=== PATIENT | female | born 1955 | race African-American/Black ===

== ENCOUNTER → 2017-03-12 | Emergency (ER) | payer OTHER ==
[~2017-03-12] MED LIST: INSULIN REGULAR HUMAN 100 UNITS/ML *VIAL ONE; INSULIN REGULAR HUMAN 100 UNITS/ML *VIAL SQ ONE; SODIUM CHLORIDE 1,000 ML IV STA
[2017-03-12 17:52] VITALS: BMI 48.2
--- NOTE | 2017-03-12 20:06 | PDOC ---
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 She also endorsed a slight frontal headache. The patient sat down and checked her blood pressure which was around 90/50. The patient denies any nausea, vomiting, chest pain, shortness of breath, palpitations, or loss of consciousness. She states that her symptoms have resolved at this time. The patient also notes she has not taken her meds today for DM or HTN, although she is normally compliant. Patient also missed a meal today. The patient reports having dizziness when she lays down at night for the past few days and dizziness when she bends over for the past month. Patient has an MRI scheduled next month by neurologist for the same complaint. PMD: Liat Kaufman MD Allergies: Meloxicam Surgical Hx: , bilateral knee replacement, rotator cuff repair <Jaquelin Pagan - Last Filed: 03/12/17 20:35> - General Chief Complaint: Lightheaded Stated Complaint: DIZZINESS/EMPLOYEE Time Seen by Provider: 03/12/17 19:28 Past History - Past Medical History Diabetes: Yes HTN: Yes Hypercholesterolemia: No - Surgical History Abdominal Surgery: Yes Cholecystectomy: No Neurologic Surgery: No (HEAD ANEURYSM, SHUNT) - Immunization History Immunization Up to Date: Yes - Psycho/Social/Smoking Cessation Hx Anxiety: No Suicidal Ideation: No Smoking History: Never smoked Hx Alcohol Use: No Drug/Substance Use Hx: No Substance Use Type: None <Saray Mo - Last Filed: 03/12/17 20:21> <Jaquelin Pagan - Last Filed: 03/12/17 20:35> - Past Medical History Allergies/Adverse Reactions: Allergies Allergy/AdvReac Type Severity Reaction Status Date / Time meloxicam [From [facility]] Allergy Rash Verified 03/12/17 17:51 Home Medications: Ambulatory Orders Metformin HCl 1,000 mg PO BID 06/02/15 Glipizide [Glucotrol Xl] 2.5 mg PO DAILY #30 tab.er.24 06/21/16 Aspirin Coated [Ecotrin -] 162 mg PO DAILY PRN 03/12/17 Enalapril Maleate [Vasotec -] 10 mg PO DAILY 03/12/17 Review of Systems - Review of Systems Comments:: 03/12/17 20:33 GENERAL/CONSTITUTIONAL: Diaphoresis. No fever or chills. No weakness. HEAD, EYES, EARS, NOSE AND THROAT: No change in vision. No ear pain or discharge. No sore throat. CARDIOVASCULAR: Low blood pressure. No chest pain or shortness of breath. RESPIRATORY: No cough, wheezing, or hemoptysis. GASTROINTESTINAL: No nausea, vomiting, diarrhea or constipation. GENITOURINARY: No dysuria, frequency, or change in urination. MUSCULOSKELETAL: No joint or muscle swelling or pain. No neck or back pain. ENDOCRINE: No increased thirst. No abnormal weight change. SKIN: No rash NEUROLOGIC: Dizziness, headache. No loss of consciousness or change in strength/ sensation. <Jaquelin Pagan - Last Filed: 03/12/17 20:35> *Physical Exam - Vital Signs Last Vital Signs Temp Pulse Resp BP Pulse Ox 98.3 F 85 20 142/100 96 03/12/17 17:47 03/12/17 17:47 03/12/17 17:47 03/12/17 17:47 03/12/17 17:47 <Saray Mo - Last Filed: 03/12/17 20:21> - Vital Signs Last Vital Signs Temp Pulse Resp BP Pulse Ox 98.3 F 82 18 143/75 96 03/12/17 17:47 03/12/17 20:11 03/12/17 20:11 03/12/17 20:11 03/12/17 20:11 - Physical Exam Comments: 03/12/17 20:35 GENERAL: Awake, alert, and fully oriented, in no acute distress HEAD: No signs of trauma EYES: PERRLA, EOMI, sclera anicteric, conjunctiva clear ENT: Auricles normal inspection, hearing grossly normal, nares patent, oropharynx clear without exudates. Moist mucosa NECK: Normal ROM, supple, no lymphadenopathy, JVD, or masses LUNGS: Breath sounds equal, clear to auscultation bilaterally. No wheezes, and no crackles HEART: Regular rate and rhythm, normal S1 and S2, no murmurs, rubs or gallops ABDOMEN: Soft, nontender, normoactive bowel sounds. No guarding, no rebound. No masses EXTREMITIES: Normal range of motion, no edema. No clubbing or cyanosis. No cords, erythema, or tenderness NEUROLOGICAL: Cranial nerves II through XII grossly intact. Normal speech, normal gait SKIN: Warm, Dry, normal turgor, no rashes or lesions noted. HEMATOLOGIC/LYMPHATIC: No anemia, easy bleeding, or history of blood clots. ALLERGIC/IMMUNOLOGIC: No hives or skin allergy. <Jaquelin Pagan - Last Filed: 03/12/17 20:35> Medical Decision Making - Medical Decision Making 03/12/17 20:21 61-year-old female with history of hypertension, CHF, diabetes, hyperlipidemia who presents to the emergency department with an episode of lightheadedness accompanied by hypotension and diaphoresis while at work today. Differential diagnosis includes but is not limited to: Hypoglycemia, electrolyte abnormality , dehydration, atypical presentation of ACS, toxic/metabolic derangement. Plan: 1. Labs 2. EKGnormal sinus rhythm at 80 bpm with normal axis, intervals and no acute ST segment changes 3. Chest x-ray 4. Observe and reevaluate <Saray Mo - Last Filed: 03/12/17 20:21> *DC/Admit/Observation/Transfer - Attestations Physician Attestion: 03/12/17 20:21 I, Dr. Saray Mo, attest that the scribes documentation that appears above has been prepared under my direction and personally reviewed by me in its entirety. I confirmed that the note above accurately reflects all work, treatment, procedures, and medical decision-making performed by me. <Saray Mo - Last Filed: 03/12/17 20:21> - Attestations Scribe Attestion: 03/12/17 20:35 Documentation prepared by Jaquelin Pagan, acting as medical office supervisor for Saray Mo MD. <Jaquelin Pagan - Last Filed: 03/12/17 20:35> Diagnosis at time of Disposition: Light headedness - Referrals Referrals: Liat Kaufman MD [Primary Care Provider] -
[2017-03-12 20:55] LABS: BASOPHIL 0.8 % (0-2.0); EOSINOPHIL 0.1 % (0-4.5); MCH 26.9 pg (25.7-33.7); MCHC 31.2 g/dl (32.0-36.0); MEAN CELL VOLUME 85.9 fl (80-96); MEAN PLT VOLUME 9.5 fl (7.5-11.1); PLATELET COUNT 279 K/MM3 (134-434); RDW 13.2 % (11.6-15.6); WHITE BLOOD COUNT 4.5 K/mm3 (4.0-10.0)
[2017-03-12 22:35] LABS: ALBUMIN 3.4 g/dl (3.4-5.0); ANION GAP 10 (8-16); CALCIUM 9.5 mg/dL (8.5-10.1); CO2 24 mmol/L (21-32); CREATININE 1.9 mg/dL (0.55-1.02); SGOT/AST 29 U/L (15-37); SGPT/ALT 27 U/L (12-78)
[2017-03-12 22:39] LABS: ALK PHOS 113 U/L (45-117); BILIRUBIN,TOTAL 0.4 mg/dL (0.2-1.0); TOT PROT 7.6 g/dl (6.4-8.2); TROPONIN I < 0.02 ng/ml (0.00-0.05)
[2017-03-12 22:44] LABS: GLUCOSE,RANDOM 440 mg/dL (74-106)
[2017-03-13 02:23] LABS: ANION GAP 15 (8-16); CALCIUM 8.7 mg/dL (8.5-10.1); CO2 21 mmol/L (21-32); CREATININE 1.7 mg/dL (0.55-1.02)
[2017-03-13 02:24] LABS: TROPONIN I < 0.02 ng/ml (0.00-0.05)
[2017-03-13 02:33] LABS: GLUCOSE,RANDOM 347 mg/dL (74-106)
--- NOTE | 2017-03-13 05:13 | PDOC ---
*Physical Exam - Vital Signs Last Vital Signs Temp Pulse Resp BP Pulse Ox 98.3 F 82 18 143/75 96 03/12/17 17:47 03/12/17 20:11 03/12/17 20:11 03/12/17 20:11 03/12/17 20:11 ED Treatment Course - LABORATORY CBC & Chemistry Diagram: 03/12/17 20:50 03/13/17 01:25 - ADDITIONAL ORDERS Additional order review: Laboratory Results 03/13/17 03/12/17 03/12/17 01:25 22:00 20:50 Sodium 138 134 L Cancelled Potassium 4.2 4.4 Cancelled Chloride 102 100 Cancelled Carbon Dioxide 21 24 Cancelled Anion Gap 15 10 Cancelled BUN 23 H 24 H Cancelled Creatinine 1.7 H 1.9 H D Cancelled Creat Clearance w eGFR 26.79 Cancelled Random Glucose 347 H* D 440 H* D Cancelled Calcium 8.7 9.5 Cancelled Phosphorus Cancelled Magnesium Cancelled Total Bilirubin 0.4 Cancelled AST 29 D Cancelled ALT 27 D Cancelled Alkaline Phosphatase 113 Cancelled Creatine Kinase 139 159 D Cancelled CK-MB (CK-2) < 1.000 Troponin I < 0.02 < 0.02 Cancelled Total Protein 7.6 Cancelled Albumin 3.4 Cancelled 03/12/17 20:50 RBC 4.75 MCV 85.9 MCHC 31.2 L RDW 13.2 MPV 9.5 Neutrophils % 39.0 L Lymphocytes % 47.9 H Monocytes % 12.2 H Eosinophils % 0.1 D Basophils % 0.8 - Medications Given in the ED: ED Medications Discontinued Medications Generic Name Dose Route Start Last Admin Trade Name Aldair PRN Reason Stop Dose Admin Sodium Chloride 1,000 mls @ 1,000 mls/hr 03/12/17 22:48 03/12/17 23:35 Normal Saline - IV 03/12/17 23:47 1,000 mls/hr ASDIR STA Administration Sodium Chloride 1,000 mls @ 1,000 mls/hr 03/13/17 02:34 03/13/17 02:36 Normal Saline - IV 03/13/17 03:33 1,000 mls/hr ASDIR STA Administration Medical Decision Making - Medical Decision Making 03/13/17 05:12 Pt glucose has not gone down much after almost 3 liters of fluids. Pt will be given 2 units of Regular insulin SQ and suggest to call pcp for better glucose controll. *DC/Admit/Observation/Transfer Diagnosis at time of Disposition: Light headedness Diabetes Qualifiers: Diabetes mellitus type: type 2 - Discharge Dispostion Disposition: HOME Condition at time of disposition: Stable Admit: No - Referrals Referrals: Liat Kaufman MD [Primary Care Provider] - - Patient Instructions Printed Discharge Instructions: Type 2 Diabetes, DI for Hyperglycemia -- Adult - Post Discharge Activity Work/School Note: Back to Work
[2017-03-13 06:07] VITALS: BP 143/91; PULSE 68; TEMP 97.8
--- NOTE | 2017-03-15 12:13 | EKG ---
Test Reason : Blood Pressure : / mmHG Vent. Rate : 080 BPM Atrial Rate : 080 BPM P-R Int : 152 ms QRS Dur : 082 ms QT Int : 354 ms P-R-T Axes : 055 040 048 degrees QTc Int : 408 ms NORMAL SINUS RHYTHM NORMAL ECG WHEN COMPARED WITH ECG OF 19-JUN-2016 12:26, SINUS RHYTHM HAS REPLACED ATRIAL FLUTTER Confirmed by MD SANCHEZ, MARKEL ([id number]) on 03/15/2017 12:12:53 PM Referred By: Confirmed By:MARKEL BRADFORD MD
== END | disposition home or self-care (01) ==
LOC: JER 17:46
PROC: 3E0337Z Introduction of Electrolytic and Water Balance Substance into Peripheral Vein, Percutaneous Approach (ICD-10-PCS; principal; 2017-03-12)
PROC: 3E013VG Introduction of Insulin into Subcutaneous Tissue, Percutaneous Approach (ICD-10-PCS; 2017-03-12)
DX: E11.9 Type 2 diabetes mellitus without complications (principal); Z79.84 Long term (current) use of oral hypoglycemic drugs; R42 Dizziness and giddiness; I10 Essential (primary) hypertension; Z91.14 Patient's other noncompliance with medication regimen
CPT/HCPCS: 36415; 71020-TC; 80048; 80053; 82550; 82553; 84484; 85025; 93005; 93010; 99283-25

== ENCOUNTER 2017-11-04 16:20 | Emergency (ER) | payer OTHER ==
--- NOTE | 2017-11-04 16:28 | PDOC ---
Rapid Medical Evaluation Chief Complaint: Chest Pain Time Seen by Provider: 11/04/17 16:26 Medical Evaluation: Allergies Allergy/AdvReac Type Severity Reaction Status Date / Time meloxicam [From Mobic] Allergy Rash Verified 03/12/17 17:51 11/04/17 16:26 The patient presents with a chief complaint of: Chest tightness starting within the hour. Pt. is an employee I have performed a brief in-person evaluation of this patient; Pertinent physical exam findings: RRR, CTAB I have ordered the following: EKG, CBC, CMP, PT/INR, Cardiac profile, CXR The patient will proceed to the ED for further evaluation.
[2017-11-04 16:32] VITALS: BMI 49.0
[2017-11-04 17:09] LABS: BASO % 0.7 % (0-2.0); EOS % 1.6 % (0-4.5); HEMATOCRIT 36.1 % (32.4-45.2); HEMOGLOBIN 11.4 GM/dL (10.7-15.3); LYMPH % 38.7 % (8-40); MCH 27.4 pg (25.7-33.7); MCHC 31.5 g/dl (32.0-36.0); MEAN CELL VOLUME 86.8 fl (80-96); MEAN PLT VOLUME 8.8 fl (7.5-11.1); MONO % 11.3 % (3.8-10.2); NEUT % 47.7 % (42.8-82.8); PLATELET COUNT 279 K/MM3 (134-434); RBC 4.16 M/mm3 (3.60-5.2); RDW 13.4 % (11.6-15.6)
[2017-11-04 17:34] LABS: ALBUMIN 3.2 g/dl (3.4-5.0); ALK PHOS 98 U/L (45-117); ANION GAP 8 (8-16); BILIRUBIN,TOTAL 0.4 mg/dL (0.2-1.0); BLOOD UREA NITROGEN 18 mg/dL (7-18); CALCIUM 9.3 mg/dL (8.5-10.1); CHLORIDE 110 mmol/L (98-107); CO2 25 mmol/L (21-32); GLUCOSE,RANDOM 124 mg/dL (74-106); INR 0.99 (0.82-1.09); POTASSIUM 4.1 mmol/L (3.5-5.1); PROTHROMBIN TIME (PATIENT) 11.2 SEC (9.98-11.88); SGOT/AST 14 U/L (15-37); SGPT/ALT 19 U/L (12-78); SODIUM 143 mmol/L (136-145); TOT PROT 7.3 g/dl (6.4-8.2)
--- NOTE | 2017-11-04 19:13 | PDOC ---
History of Present Illness <JamirNita Ondina - Last Filed: 11/04/17 19:11> <Urvashi Quigley - Last Filed: 11/04/17 19:21> - General Chief Complaint: Chest Pain Stated Complaint: CHEST TIGHTNESS Time Seen by Provider: 11/04/17 16:26 - History of Present Illness Initial Comments: 11/04/17 19:18 The patient is a 62 year old female with significant past medical history of hypertension, diabetes, brain aneurysm s/p WATER ANALYST shunt who presents to the emergency department today with chest tightness that occured today. 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 Patient will be making an appt to see her logging crew foreman Dr. Luque tomorrow. he reports some associated nausea and lightheadedness with her pain. She denies recent nausea, vomit. Denies recent headache or lightheadedness. She denies any shortness of breath or palpitations. She denies any leg swelling. The patient denies recent illness, fevers, or chills. PMD: Dr. Gustavo Garza [employer]: Dr. Jesus Manuel Luque (Urvashi Quigley) Past History - Past Medical History COPD: No Diabetes: Yes HTN: Yes Hypercholesterolemia: No - Surgical History Abdominal Surgery: Yes Cholecystectomy: No Neurologic Surgery: No (HEAD ANEURYSM, SHUNT) - Immunization History Immunization Up to Date: Yes - Suicide/Smoking/Psychosocial Hx Smoking History: Never smoked Information on smoking cessation initiated: No Hx Alcohol Use: No Drug/Substance Use Hx: No Substance Use Type: None <JamirTirenuka Nj - Last Filed: 11/04/17 19:11> <Urvashi Quigley - Last Filed: 11/04/17 19:21> - Past Medical History Allergies/Adverse Reactions: Allergies Allergy/AdvReac Type Severity Reaction Status Date / Time meloxicam [From Mobic] Allergy Rash Verified 11/04/17 17:29 Home Medications: Ambulatory Orders Enalapril Maleate [Vasotec -] 10 mg PO DAILY 03/12/17 Atorvastatin Ca [Lipitor] 10 mg PO HS 11/04/17 Glyburide 5 mg PO BID 11/04/17 Sitagliptin Phosphate [Januvia] 25 mg PO DAILY 11/04/17 Review of Systems <Nita Bowie Ondina - Last Filed: 11/04/17 19:11> <Urvashi Quigley - Last Filed: 11/04/17 19:21> - Review of Systems Comments:: 11/04/17 19:19 CONSTITUTIONAL: Absent: fever, no chills, no fatigue EYES: Absent: visual changes ENT: Absent: ear pain, no sore throat CARDIOVASCULAR: Present: chest tightness Absent: no palpitations RESPIRATORY: Absent: cough, no SOB GI: Absent: abdominal pain, no nausea, no vomiting, no constipation, no diarrhea GENITOURINARY: Absent: dysuria, no frequency, no hematuria MUSCULOSKELETAL: Absent: back pain, no arthralgia, no myalgia SKIN: Absent: rash NEURO: Absent: headache (Urvashi Quigley) *Physical Exam <Ti Bowierenuka Sargenth - Last Filed: 11/04/17 19:11> <Urvashi Quigley - Last Filed: 11/04/17 19:21> - Vital Signs Last Vital Signs Temp Pulse Resp BP Pulse Ox 99.1 F 108 H 18 161/72 100 11/04/17 16:25 11/04/17 16:25 11/04/17 16:25 11/04/17 16:25 11/04/17 16:25 - Physical Exam Comments: 11/04/17 19:20 GENERAL: Well-appearing, morbidly obese. No apparent distress. HEENT: Normocephalic, atraumatic. PERRL, EOM intact. CARDIOVASCULAR: Normal S1, S2. Regular rate and rhythm. PULMONARY: Clear to auscultation bilaterally. ABDOMEN: Soft, non-distended, non-tender. EXTREMITIES: Normal ROM in all four extremities. No gross deformities. SKIN: Warm, dry. No rash NEUROLOGICAL: No focal neurological deficits. (Urvashi Quigley) ED Treatment Course - LABORATORY CBC & Chemistry Diagram: 11/04/17 16:47 11/04/17 16:47 <JamirNitarenuka Nj - Last Filed: 11/04/17 19:11> - LABORATORY CBC & Chemistry Diagram: 11/04/17 16:47 11/04/17 16:47 <Urvashi Quigley - Last Filed: 01/09/18 19:21> - ADDITIONAL ORDERS Additional order review: Laboratory Results 11/04/17 11/04/17 11/04/17 16:47 16:47 16:47 PT with INR 11.20 INR 0.99 Sodium 143 Potassium 4.1 Chloride 110 H Carbon Dioxide 25 Anion Gap 8 BUN 18 Creatinine 1.0 Creat Clearance w eGFR 56.00 Random Glucose 124 H D Calcium 9.3 Total Bilirubin 0.4 AST 14 L ALT 19 Alkaline Phosphatase 98 Creatine Kinase 107 Troponin I < 0.02 Total Protein 7.3 Albumin 3.2 L 11/04/17 16:47 RBC 4.16 MCV 86.8 MCHC 31.5 L RDW 13.4 MPV 8.8 Neutrophils % 47.7 D Lymphocytes % 38.7 Monocytes % 11.3 H Eosinophils % 1.6 D Basophils % 0.7 *DC/Admit/Observation/Transfer <Nita Bowie - Last Filed: 11/04/17 19:11> <Urvashi Quigley - Last Filed: 11/04/17 19:21> Diagnosis at time of Disposition: Chest tightness - Discharge Dispostion Disposition: HOME Condition at time of disposition: Stable - Referrals Referrals: Gustavo Garza MD [Primary Care Provider] - Jesus Manuel Luque MD [Staff Physician] - - Patient Instructions Printed Discharge Instructions: DI for Atypical Chest Pain Additional Instructions: please see your logging crew foreman tomorrow return for any worsening symptoms - Post Discharge Activity - Attestations Scribe Attestion: 11/04/17 19:21 Documentation prepared by Urvashi Quigley, acting as medical assistant ob gyn for Nita Bowie MD. (Urvashi Quigley)
[2017-11-04 19:27] VITALS: BP 142/78; PULSE 78; TEMP 98.2
--- NOTE | 2017-11-05 09:30 | EKG ---
Test Reason : Blood Pressure : / mmHG Vent. Rate : 103 BPM Atrial Rate : 103 BPM P-R Int : 162 ms QRS Dur : 080 ms QT Int : 330 ms P-R-T Axes : 052 021 027 degrees QTc Int : 432 ms SINUS TACHYCARDIA OTHERWISE NORMAL ECG WHEN COMPARED WITH ECG OF 12-MAR-2017 18:42, NO SIGNIFICANT CHANGE WAS FOUND Confirmed by ALEXANDRO MALIN MD ([id number]) on 11/05/2017 9:30:29 AM Referred By: Confirmed By:ALEXANDRO MALIN MD
== END 2017-11-04 19:20 | disposition home or self-care (01) ==
LOC: JER 16:20
DX: R07.89 Other chest pain (principal); I10 Essential (primary) hypertension; E11.9 Type 2 diabetes mellitus without complications; Z79.84 Long term (current) use of oral hypoglycemic drugs; Z86.79 Personal history of other diseases of the circulatory system; Z95.828 Presence of other vascular implants and grafts
CPT/HCPCS: 36415; 71046-TC; 80053; 82550; 84484; 85025; 85610; 93005; 93010; 99282-25